=== PATIENT | male | born 1975 | race Caucasian/White ===

== ENCOUNTER 2020-08-03 01:27 | Emergency (ER) | payer OTHER ==
[~2020-08-03] VITALS: Ht 193 cm; Wt 77.1 kg
[2020-08-03] MEDS ORDERED: LORAZEPAM INJ 2 MG/ML VIAL ONE (01:41)
[2020-08-03] MEDS ORDERED: IV NS 0.9% 1,000 ML IV ONE (02:00)
[2020-08-03] MEDS ORDERED: LORAZEPAM INJ 2 MG/ML VIAL IV ONE (02:00)
--- NOTE | 2020-08-03 04:57 | NUR ---
PATIENT CAME TO THE ER BED 13 C/O ANXIETY. PATIENT STATES THAT HE CAN NOT SLEEP. PATIENT TOOK ALCOHOL AND METH "COUPLE DAYS AGO" PATIENT IS AAOX4. NO SOB. BREATHING EVENLY AND UNLABORED ON ROOM AIR. CONNECTED TO THE MONITOR.
[2020-08-03 05:52] VITALS: BP 129/81
--- NOTE | 2020-08-03 05:52 | NUR ---
Patient discharged to home in stable condition. Written and verbal after care instructions given. Patient verbalizes understanding of instruction.
--- NOTE | 2020-08-03 05:52 | NUR ---
IV removed. Catheter intact and site benign. Pressure and 4x4 applied to site. No bleeding noted.
== END 2020-08-03 05:53 | disposition home or self-care (01) ==
LOC: ER 01:30
DX: F15.10 Other stimulant abuse, uncomplicated (principal); F32.9 Major depressive disorder, single episode, unspecified; F41.9 Anxiety disorder, unspecified; F17.200 Nicotine dependence, unspecified, uncomplicated; Z60.2 Problems related to living alone
CPT/HCPCS: 82962; 96361; 96374; 99283; J2060; J7030

== ENCOUNTER 2024-05-10 06:10 | Emergency (ER) | payer OTHER | END 2024-05-10 06:40 | disposition left against medical advice (07) | LOC: ER 06:19 | DX: Z77.123 Contact with and (suspected) exposure to radon and other naturally occurring radiation (principal); Z53.21 Procedure and treatment not carried out due to patient leaving prior to being seen by health care provider ==